=== PATIENT | male | born 1995 ===

== ENCOUNTER 2018-06-14 19:26 | Emergency (ER) | payer SELFPAY ==
[2018-06-14] MEDS ORDERED: Albuterol-Ipratrop 3 mg / 0.5 (3 ml) UD IH STA ×3 (20:02)
--- NOTE | 2018-06-14 20:04 | ED PDOC ---
HPI: CCC, URI, Sore Throat Time Seen by Provider: 06/14/18 19:55 Chief Complaint (Nursing): Respiratory Distress Chief Complaint (Provider): cough History Per: Patient History/Exam Limitations: no limitations Onset/Duration Of Symptoms: Days (x5) Current Symptoms Are (Timing): Still Present Additional Complaint(s): 23 year old male with pmHx of asthma, presents to ED with a complaint of cough and wheezing for 5 days. He denies any fever, chills, nasal congestion, shortness of breath, palpitations, or recent travel. Patient admits to using his girlfriend's albuterol inhaler with minimal relief and has been having flare-ups for 1 year without evaluation. PCP: none provided Past Medical History Reviewed: Historical Data, Nursing Documentation, Vital Signs Vital Signs: Last Vital Signs Temp 98.6 F 06/14/18 19:34 Pulse 64 06/14/18 19:34 Resp 18 06/14/18 19:34 BP 144/75 06/14/18 19:34 Pulse Ox 96 06/14/18 19:34 - Medical History PMH: Asthma, Seizures (as child) - Surgical History Surgical History: No Surg Hx - Family History Family History: States: Unknown Family Hx - Home Medications Home Medications: Ambulatory Orders Medication Instructions Recorded Albuterol HFA [Ventolin HFA 90 1 puff IH Q4 PRN #1 inh 06/14/18 mcg/actuation (8 g)] predniSONE [Prednisone] 60 mg PO DAILY #12 tab 06/14/18 - Allergies Allergies/Adverse Reactions: Allergies Allergy/AdvReac Type Severity Reaction Status Date / Time No Known Allergies Allergy Verified 06/14/18 19:34 Review of Systems ROS Statement: Except As Marked, All Systems Reviewed And Found Negative Constitutional: Negative for: Fever, Chills ENT: Negative for: Nose Congestion Cardiovascular: Negative for: Chest Pain, Palpitations Respiratory: Positive for: Cough, Wheezing. Negative for: Shortness of Breath Physical Exam - Reviewed Nursing Documentation Reviewed: Yes Vital Signs Reviewed: Yes - Physical Exam Appears: Positive for: Non-toxic, No Acute Distress Head Exam: Positive for: ATRAUMATIC, NORMAL INSPECTION, NORMOCEPHALIC Skin: Positive for: Normal Color Eye Exam: Positive for: Normal appearance, EOMI, PERRL ENT: Positive for: Normal ENT Inspection. Negative for: Pharyngeal Erythema Neck: Positive for: Normal, Painless ROM, Supple Cardiovascular/Chest: Positive for: Regular Rate, Rhythm, Chest Non Tender Respiratory: Positive for: Wheezing (expiratory bilaterally). Negative for: Respiratory Distress Neurologic/Psych: Positive for: Alert, Oriented. Negative for: Motor/Sensory Deficits - ECG O2 Sat by Pulse Oximetry: 96 (RA) Pulse Ox Interpretation: Normal Medical Decision Making Medical Decision Making: Time: 2001 Initial Plan: * EKG * Duoneb 3ml INH * Prednisone 60mg PO Time: 2116 --Upon provider re-evaluation, patient is medically stable and reports resolution of symptoms s/p nebulizer treatments. Patient will be discharged home with Rx for albuterol INH and prednisone. Counseling was provided and all questions were answered regarding diagnosis. There is agreement to discharge pl an. Return if symptoms persist or worsen. Clinical Impression: Asthma Scribe Attestation: Documented by Priscilla Agrawal, acting as a scribe for Ese Shaw PA-C. Provider Scribe Attestation: All medical record entries made by the Scribe were at my direction and personally dictated by me. I have reviewed the chart and agree that the record accurately reflects my personal performance of the history, physical exam, medical decision making, and the department course for this patient. I have also personally directed, reviewed, and agree with the discharge instructions and disposition. Disposition - Clinical Impression Clinical Impression: Asthma - Patient ED Disposition Is Patient to be Admitted: No Counseled Patient/Family Regarding: Studies Performed, Diagnosis, Need For Followup, Rx Given - Disposition Referrals: [facility] [Outside] Disposition: Routine/Home Disposition Time: 21:17 Condition: IMPROVED Prescriptions: Albuterol HFA [Ventolin HFA 90 mcg/actuation (8 g)] 1 puff IH Q4 PRN #1 inh PRN Reason: Wheezing predniSONE [Prednisone] 60 mg PO DAILY #12 tab Instructions: Asthma in Adults Forms: [facility] ([place]), [facility] ED School/Work Excuse
[2018-06-14] MEDS ORDERED: Albuterol-Ipratrop 3 mg / 0.5 (3 ml) UD ONE (20:07)
[2018-06-14 21:26] VITALS: BP 122/80; PULSE 78; RESP 18; TEMP 98; O2SAT 100
--- NOTE | 2018-06-15 18:49 | CARD ---
APPROVED REPORT Date of service: 06/14/2018 EKG Measurement Heart [id number] <Conclusion> Normal sinus rhythm with sinus arrhythmia Rightward axis Pulmonary disease pattern Abnormal ECG
== END 2018-06-14 21:25 | disposition home or self-care (01) ==
LOC: H.ER 19:26
DX: J45.909 Unspecified asthma, uncomplicated (principal); Z79.899 Other long term (current) drug therapy